=== PATIENT | female | born 1985 | race Caucasian/White ===

== ENCOUNTER 2024-05-25 17:13 | Emergency (ER) | payer SELFPAY ==
[2024-05-25] MEDS ORDERED: Bupivacaine PF 0.5% 30 ML VIAL ONE (17:40)
[2024-05-25] MEDS ORDERED: Ketorolac Tromethamine 30 MG (1 mL) VIAL ONE (18:18)
== END 2024-05-25 18:25 | disposition home or self-care (01) ==
LOC: ERS 17:13
DX: K08.89 Other specified disorders of teeth and supporting structures (principal)
CPT/HCPCS: 64400; 96372; J0665; J1885